=== PATIENT | female | born 1975 | race Caucasian/White ===

== ENCOUNTER 2018-03-29 19:16 | Emergency (ER) | payer OTHER ==
[2018-03-29 19:38] VITALS: BMI 23.7
--- NOTE | 2018-03-29 19:40 | PDOC ---
Rapid Medical Evaluation Chief Complaint: Blood Pressure Problem Time Seen by Provider: 03/29/18 19:34 Medical Evaluation: Vital Signs Temp Pulse Resp BP Pulse Ox 69 16 166/92 100 03/29/18 19:34 03/29/18 19:34 03/29/18 19:34 03/29/18 19:34 03/29/18 19:38 b/p 172/71 at [facility] with mild headache. denies chest pain/. history of hypertension. Pmhx dr. miramontes PE: patient alert ox3. Plan. patient to the ER for further management of care.
[2018-03-29] MEDS ORDERED: metoPROLOL SUCCINATE 25 MG TAB.SR.24H (FP) PO ONE (21:10)
[2018-03-29 22:04] VITALS: BP 150/92; PULSE 61
--- NOTE | 2018-03-29 22:10 | PDOC ---
History of Present Illness - General Chief Complaint: Blood Pressure Problem Stated Complaint: BLOOD PRESSURE Time Seen by Provider: 03/29/18 19:34 - History of Present Illness Initial Comments: 42-year-old female presents for evaluation of headache and associated hypertension. She states she lived in [facility] [place] was given hypertensive medicine but does not recall the name. Since waiting her headache has resolved. 03/29/18 22:05 Past History - Past Medical History Allergies/Adverse Reactions: Allergies Allergy/AdvReac Type Severity Reaction Status Date / Time No Known Allergies Allergy Verified 03/29/18 19:39 Home Medications: Ambulatory Orders Metoprolol Succinate 25 mg PO DAILY #10 tab.er.24h 03/29/18 COPD: No HTN: Yes - Immunization History Immunization Up to Date: Yes - Suicide/Smoking/Psychosocial Hx Smoking History: Never smoked Have you smoked in the past 12 months: No Information on smoking cessation initiated: No Hx Alcohol Use: No Drug/Substance Use Hx: No Substance Use Type: None Review of Systems - Review of Systems Comments:: GENERAL/CONSTITUTIONAL: No fever or chills. No weakness. No weight change. HEAD, EYES, EARS, NOSE AND THROAT: No change in vision. No ear pain or discharge. No sore throat. CARDIOVASCULAR: No chest pain or shortness of breath. RESPIRATORY: No cough, wheezing, or hemoptysis. GASTROINTESTINAL: No nausea, vomiting, diarrhea or constipation. No rectal bleeding. GENITOURINARY: No dysuria, frequency, or change in urination. MUSCULOSKELETAL: No joint or muscle swelling or pain. No neck or back pain. SKIN AND BREASTS: No rash or easy bruising. NEUROLOGIC: + headache, no vertigo, loss of consciousness, or loss of sensation. PSYCHIATRIC: No depression or anxiety. ENDOCRINE: No increased thirst. No abnormal weight change. HEMATOLOGIC/LYMPHATIC: No anemia, easy bleeding, or history of blood clots. ALLERGIC/IMMUNOLOGIC: No hives or skin allergy. No latex allergy. 03/29/18 22:06 *Physical Exam - Vital Signs Last Vital Signs Temp Pulse Resp BP Pulse Ox 61 16 150/92 100 03/29/18 22:03 03/29/18 19:34 03/29/18 22:03 03/29/18 22:03 - Physical Exam Comments: GENERAL: The patient is awake, alert, and fully oriented, in no acute distress. HEAD: Normal with no signs of trauma. EYES: Pupils equal, round and reactive to light, extraocular movements intact, sclera anicteric, conjunctiva clear. Fundi normal ENT: Ears normal, nares patent, oropharynx clear without exudates. Moist mucous membranes. NECK: Normal range of motion, supple without lymphadenopathy, JVD, or masses. LUNGS: Breath sounds equal, clear to auscultation bilaterally. No wheezes, and no crackles. HEART: Regular rate and rhythm, normal S1 and S2 without murmur, rub or gallop. ABDOMEN: Soft, nontender, normoactive bowel sounds. No guarding, no rebound. No masses. EXTREMITIES: Normal range of motion, no edema. No clubbing or cyanosis. No cords, erythema, or tenderness. NEUROLOGICAL: Cranial nerves II through XII grossly intact. Normal speech, normal gait. PSYCH: Normal mood, normal affect. SKIN: Warm, Dry, normal turgor, no rashes or lesions noted. 03/29/18 22:06 ED Treatment Course - ADDITIONAL ORDERS Additional order review: Laboratory Results 03/29/18 20:15 Urine HCG, Qual Negative - Medications Given in the ED: ED Medications Discontinued Medications Generic Name Dose Route Start Last Admin Trade Name Freq PRN Reason Stop Dose Admin Metoprolol Succinate 25 mg 03/29/18 21:10 03/29/18 21:27 Toprol Xl - PO 03/29/18 21:11 25 mg ONCE ONE Administration Medical Decision Making - Medical Decision Making 42-year-old female with a past history significant for hypertension she is gone left untreated. I've given her a beta maria teresa in the emergency room and her blood pressure has trended down. I will prescribe her a by mouth beta maria teresa for home use and follow-up with the primary care physician. She does not have a local primary care physician. She is new to the area. 03/29/18 22:07 *DC/Admit/Observation/Transfer Diagnosis at time of Disposition: Hypertension - Discharge Dispostion Disposition: HOME Condition at time of disposition: Improved Decision to Admit order: No - Referrals Referrals: Afia Small MD [Staff Physician] - Boaz Miller MD [Staff Physician] - Christopher Lechuga MD [Staff Physician] - Nkechi Webster MD [Staff Physician] - Zaira Marin MD [Staff Physician] - - Patient Instructions Printed Discharge Instructions: DI for High Blood Pressure Additional Instructions: Please do not take any other hypertensive medicine you may have at home. I prescribed you one today. It is one tablet once a day. It is very important that you follow up with the primary care physician. If he did not have one I've recommended one for you. Return to the emergency room if you experience headache visual changes or dizziness. Time he should follow-up with the primary care physician in the next day - Post Discharge Activity
== END 2018-03-29 22:17 | disposition home or self-care (01) ==
LOC: JERFT 19:16
DX: I10 Essential (primary) hypertension (principal)
CPT/HCPCS: 84703; 99281-25

== ENCOUNTER 2019-08-31 13:16 | Emergency (ER) | payer OTHER ==
--- NOTE | 2019-08-31 13:31 | PDOC ---
Rapid Medical Evaluation Time Seen by Provider: 08/31/19 13:29 Medical Evaluation: Allergies Allergy/AdvReac Type Severity Reaction Status Date / Time No Known Allergies Allergy Verified 03/29/18 19:39 08/31/19 13:29 I have performed a brief in-person evaluation of this patient. The patient presents with a chief complaint of: 1 week of cough, chest pressure and difficulty breathing. No fever/chills I have ordered the following: UCG, CXR The patient will proceed to the ED for further evaluation. Discharge Disposition - Diagnosis Cough - Referrals - Patient Instructions - Post Discharge Activity
[2019-08-31 13:40] VITALS: BMI 25.8
--- NOTE | 2019-08-31 15:17 | PDOC ---
History of Present Illness - General History Source: Patient Exam Limitations: Clinical Condition - History of Present Illness Initial Comments: 08/31/19 15:46 Patient with no sig PMhx present with complains of 1 month h/o intermittent SOB especially when she lays down flat and mid-sternal cp for a week now. Patient report had cold symptoms a month ago which has resolved but has been having dyspenia when she lays down and on exertion after walking for few blocks.Patient reported she was admitted in the [place] 3 years ago and was in coma for few months after which she started having intermittent shortness of breath and dyspenia. Patient has not followed up since discharge from hospital 3 years ago and reporting she does not have any PCP and has not followed up. Patient reports she does not know who to follow-up with. Denies nausea, vomiting, dizziness, palpitation, numbness or tingling sensation. Denies abdominal pains. Is this a multiple visit Asthma Patient?: No Timing/Duration: other (1 month) Modifying Factors: improves with: rest. worse with: movement Associated Symptoms: reports: chest pain (mid-sternum chest pain), shortness of breath (intermittent). denies: fever/chills, headaches, loss of appetite, nausea/vomiting, syncope Aspirin Received prior to arrival: Yes: no aspirin today <Satnam Sena - Last Filed: 08/31/19 16:25> <Dinesh Duckworth - Last Filed: 08/31/19 16:31> - General Chief Complaint: Cold Symptoms Stated Complaint: COLD SYMPTOMS Time Seen by Provider: 08/31/19 13:29 Past History - Past Medical History COPD: No HTN: Yes - Immunization History Immunization Up to Date: Yes - Psycho Social/Smoking Cessation Hx Smoking History: Never smoked Have you smoked in the past 12 months: No Information on smoking cessation initiated: No Hx Alcohol Use: No Drug/Substance Use Hx: No Substance Use Type: None <Satnam Sena - Last Filed: 08/31/19 16:25> <Dinesh Duckworth - Last Filed: 08/31/19 16:31> - Past Medical History Allergies/Adverse Reactions: Allergies Allergy/AdvReac Type Severity Reaction Status Date / Time No Known Allergies Allergy Verified 08/31/19 13:32 Home Medications: Ambulatory Orders Metoprolol Succinate 25 mg PO DAILY #10 tab.er.24h 03/29/18 Review of Systems - Review of Systems Able to Perform ROS?: Yes Is the patient limited Latvian proficient: No Constitutional: No: Fever, Malaise HEENTM: Yes: Symptoms Reported, See HPI, Nose Congestion. No: Eye Pain, Blurred Vision, Tearing, Recent change in vision, Double Vision, Cataracts, Ear Pain, Ocular Prothesis, Ear Discharge, Nose Pain, Tinnitus, Nose Bleeding, Hearing Loss, Throat Pain, Throat Swelling, Mouth Pain, Dental Problems, Difficulty Swallowing, Mouth Swelling, Other Respiratory: Yes: Symptoms reported, See HPI, Shortness of Breath (intermittent) , SOB with Exertion. No: Cough, Orthopnea, SOB at Rest, Stridor, Wheezing, Productive cough, Hemoptysis, Other Cardiac (ROS): Yes: Symptoms Reported, See HPI, Chest Pain (mid-sternum chest pain x 1 month). No: Edema, Irregular Heart Rate, Lightheadedness, Palpitations , Syncope, Chest Tightness, Other ABD/GI: No: Nausea, Vomiting Integumentary: No: Symptoms Reported All Other Systems: Reviewed and Negative <Satnam Sena - Last Filed: 08/31/19 16:25> *Physical Exam - Vital Signs Last Vital Signs Temp Pulse Resp BP Pulse Ox 98.9 F 66 17 129/84 100 08/31/19 13:31 08/31/19 13:31 08/31/19 13:31 08/31/19 13:31 08/31/19 13:31 - Physical Exam Comments: 08/31/19 15:15 GENERAL: Well developed, well nourished. Awake and alert. No acute distress. HEENT: Normocephalic, atraumatic. PERRLA, EOMI. No conjunctival pallor. Sclera are non-icteric. Moist mucous membranes. Oropharynx is clear. NECK: Supple. Full ROM. CARDIOVASCULAR: mild midsternal tenderness. Regular rate and rhythm. No murmurs, rubs, or gallops. Distal pulses are 2+ and symmetric. PULMONARY: No evidence of respiratory distress. Lungs clear to auscultation bilaterally. No wheezing, rales or rhonchi. ABDOMINAL: Soft. Non-tender. Non-distended. No rebound or guarding. No organomegaly. Normoactive bowel sounds. MUSCULOSKELETAL Normal range of motion at all joints. mild mid-sternal chest pain. SKIN: Warm and dry. Normal capillary refill. No rashes. No cyanosis NEUROLOGICAL: Alert, awake, appropriate. Gait is normal without ataxia. PSYCHIATRIC: Cooperative. Good eye contact. Appropriate mood General Appearance: Yes: Nourished, Appropriately Dressed. No: Apparent Distress <Satnam Sena Kelvin - Last Filed: 08/31/19 16:25> - Vital Signs Last Vital Signs Temp Pulse Resp BP Pulse Ox 98.9 F 66 17 129/84 100 08/31/19 13:31 08/31/19 13:31 08/31/19 13:31 08/31/19 13:31 08/31/19 13:31 <Dinesh Duckworth - Last Filed: 08/31/19 16:31> ED Treatment Course - LABORATORY CBC & Chemistry Diagram: 08/31/19 15:29 08/31/19 15:29 <Satnam Sena - Last Filed: 08/31/19 16:25> - LABORATORY CBC & Chemistry Diagram: 08/31/19 15:29 08/31/19 15:29 - ADDITIONAL ORDERS Additional order review: Laboratory Results 08/31/19 08/31/19 15:29 15:29 Troponin I < 0.02 B-Natriuretic Peptide 30.4 08/31/19 15:29 RBC 4.53 MCV 94.0 MCHC 32.4 RDW 13.5 MPV 10.5 Neutrophils % 62.4 Lymphocytes % 29.1 Monocytes % 6.9 Eosinophils % 0.9 Basophils % 0.7 <Dinesh Duckworth - Last Filed: 08/31/19 16:31> Medical Decision Making - Medical Decision Making 08/31/19 15:50 Patient with no sig PMhx present with complains of 1 month h/o intermittent SOB especially when she lays down flat and mid-sternal cp for a week now. Patient report had cold symptoms a month ago which has resolved but has been having dyspenia when she lays down and on exertion after walking for few blocks.Patient reported she was admitted in the [place] 3 years ago and was in coma for few months after which she started having intermittent shortness of breath and dyspenia. Patient has not followed up since discharge from hospital 3 years ago and reporting she does not have any PCP and has not followed up. Patient reports she does not know who to follow-up with. Denies nausea, vomiting, dizziness, palpitation, numbness or tingling sensation. Denies abdominal pains. Clinical exam unremarkable with normal cardio and lung exam except mild midsternal reproducible tenderness. Symptoms likely costochondritis from URI symptoms versus less likely acute cardiogenic symptoms. CBC, CMP, BNP and cardiac profile lab ordered. EKG ordered. Chest x-ray ordered. Patient be discharged home if normal EKG, imaging and lab results with cardiology follow-up 08/31/19 16:25 CBC unremarkable. cardiac profile neg. rest of labs still pending. Patient signed out to oncoming CRISTINA Hanna for follow-up care <Satnam Sena - Last Filed: 08/31/19 16:25> - Medical Decision Making 08/31/19 16:31 I reviewed the case of the mid-level practitioner and was available for consultation while in the emergency department <Dinesh Duckworth - Last Filed: 08/31/19 16:31> Discharge - Discharge Information Problems reviewed: Yes <Satnam Sena - Last Filed: 08/31/19 16:25> <Dinesh Duckworth - Last Filed: 08/31/19 16:31> - Discharge Information Clinical Impression/Diagnosis: Cough, Dyspnea on exertion Condition: Stable
[2019-08-31 15:58] LABS: BASO % 0.7 % (0-2.0); EOS % 0.9 % (0-4.5); HEMATOCRIT 42.6 % (32.4-45.2); HEMOGLOBIN 13.8 GM/dL (10.7-15.3); LYMPH % 29.1 % (8-40); MCH 30.5 pg (25.7-33.7); MCHC 32.4 g/dl (32.0-36.0); MEAN PLT VOLUME 10.5 fl (7.5-11.1); MONO % 6.9 % (3.8-10.2); NEUT % 62.4 % (42.8-82.8); PLATELET COUNT 251 K/MM3 (134-434); RBC 4.53 M/mm3 (3.60-5.2); RDW 13.5 % (11.6-15.6); WHITE BLOOD COUNT 8.5 K/mm3 (4.0-10.0)
[2019-08-31 16:38] LABS: ALBUMIN 3.7 g/dl (3.4-5.0); BILIRUBIN,TOTAL 0.2 mg/dL (0.2-1); BLOOD UREA NITROGEN 18.1 mg/dL (7-18); CALCIUM 9.3 mg/dL (8.5-10.1); CREATININE 0.8 mg/dL (0.55-1.3); POTASSIUM 4.8 mmol/L (3.5-5.1); TOT PROT 7.2 g/dl (6.4-8.2)
--- NOTE | 2019-08-31 16:41 | PDOC ---
*Physical Exam - Vital Signs Last Vital Signs Temp Pulse Resp BP Pulse Ox 98.9 F 66 17 129/84 100 08/31/19 13:31 08/31/19 13:31 08/31/19 13:31 08/31/19 13:31 08/31/19 13:31 - Physical Exam Comments: 08/31/19 16:40 Sign-out received from outgoing ER provider Nathen. Pt interviewed and examined. Patient denies any recent travel, surgery, use of hormones/OCPs. Patient is PERC negative. Ancillary studies reviewed. Awaiting lab results. Discussed results with patient and recommend that she f/u with pulmonology given persistent dyspnea. Patient verbalized understanding and agrees to plan. ED Treatment Course - LABORATORY CBC & Chemistry Diagram: 08/31/19 15:29 08/31/19 15:29 - ADDITIONAL ORDERS Additional order review: Laboratory Results 08/31/19 08/31/19 08/31/19 15:29 15:29 15:29 Sodium Potassium Chloride Carbon Dioxide Anion Gap BUN Creatinine Est GFR (CKD-EPI)AfAm Est GFR (CKD-EPI)NonAf Random Glucose Calcium Total Bilirubin AST ALT Alkaline Phosphatase Troponin I < 0.02 B-Natriuretic Peptide 30.4 Total Protein Albumin Blood Type O POSITIVE Antibody Screen Negative 08/31/19 15:29 Sodium 135 L Potassium 4.8 Chloride 102 Carbon Dioxide 27 Anion Gap 7 L BUN 18.1 H Creatinine 0.8 Est GFR (CKD-EPI)AfAm 104.65 Est GFR (CKD-EPI)NonAf 90.30 Random Glucose 102 Calcium 9.3 Total Bilirubin 0.2 AST 16 ALT 18 Alkaline Phosphatase 62 Troponin I B-Natriuretic Peptide Total Protein 7.2 Albumin 3.7 Blood Type Antibody Screen 08/31/19 15:29 RBC 4.53 MCV 94.0 MCHC 32.4 RDW 13.5 MPV 10.5 Neutrophils % 62.4 Lymphocytes % 29.1 Monocytes % 6.9 Eosinophils % 0.9 Basophils % 0.7 Discharge - Discharge Information Problems reviewed: Yes Clinical Impression/Diagnosis: Shortness of breath Condition: Stable Disposition: HOME - Admission No - Follow up/Referral Referrals: Jass Diaz MD, MD [Staff Physician] - - Patient Discharge Instructions Patient Printed Discharge Instructions: DI for Shortness of Breath Print Language: ICELANDIC - Post Discharge Activity
[2019-08-31 17:27] VITALS: BP 148/97; PULSE 68; TEMP 98
--- NOTE | 2019-09-01 14:55 | EKG ---
Test Reason : Blood Pressure : / mmHG Vent. Rate : 053 BPM Atrial Rate : 053 BPM P-R Int : 126 ms QRS Dur : 080 ms QT Int : 448 ms P-R-T Axes : 040 041 036 degrees QTc Int : 420 ms SINUS BRADYCARDIA T WAVE ABNORMALITY, CONSIDER ANTERIOR ISCHEMIA ABNORMAL ECG NO PREVIOUS ECGS AVAILABLE Confirmed by JOSEFA CLARK MD ([id number]) on 09/01/2019 2:55:28 PM Referred By: Confirmed By:JOSEFA CLARK MD
== END 2019-08-31 17:27 | disposition home or self-care (01) ==
LOC: JER 13:16 → JERFT 13:16 → JER 17:27
DX: R05 Cough (principal); I10 Essential (primary) hypertension
CPT/HCPCS: 36415; 71046-TC-FY; 80053; 83880; 84484; 85025; 86850; 86900; 86901; 93005; 93010; 99282-25

== ENCOUNTER 2025-05-10 15:16 | Emergency (ER) | payer OTHER ==
[2025-05-10 15:33] VITALS: BMI 31.1
[2025-05-10] MEDS ORDERED: ACETAMINOPHEN INJECTION 100 ML ONE (16:55)
[2025-05-10] MEDS ORDERED: METOCLOPRAMIDE HCL INJECTION 10 MG/2 ML VIAL ONE (16:55)
[2025-05-10 17:02] LABS: ABSOLUTE IMMATURE GRANULOCYTES 0.03 x10^3/uL (0.0-0.031); BASOPHILS # 0.09 x10^3/uL (0.01-0.08); EOSINOPHIL % 3.1 % (0.7-5.8); EOSINOPHILS # 0.30 x10^3/uL (0.04-0.36); MCHC 31.7 g/dl (32.2-35.5); MEAN CELL VOLUME 84.7 fl (79.4-94.8); MEAN PLT VOLUME 12.1 fl (9.4-12.3); MONOCYTE # 0.68 x10^3/uL (0.24-0.86); MONOCYTE % 7.0 % (4.7-12.5); RDW 16.2 % (12.2-17.1)
[2025-05-10] MEDS: SODIUM CHLORIDE 1,000 ML IV STA (17:21)
[2025-05-10] MEDS: ACETAMINOPHEN 1000 MG/100 ML BAG IVPB ONE (17:22)
[2025-05-10] MEDS: METOCLOPRAMIDE HCL INJECTION 10 MG/2 ML VIAL IVPUSH ONE (17:22)
[2025-05-10 17:25] LABS: CO2 28.0 mmol/L (21-32); GLUCOSE,RANDOM 121.0 mg/dL (74-106)
[2025-05-10 17:28] LABS: CREATININE 1.1 mg/dL (0.55-1.3); SGOT/AST 27.0 U/L (15-37); SGPT/ALT 34.0 U/L (13-61); TOT PROT 6.9 g/dl (6.4-8.2)
[2025-05-10 17:30] LABS: ALK PHOS 70.0 U/L (45-117)
[2025-05-10 17:38] LABS: EPI CELLS 14 /uL (0-25.1); HYALINE CASTS 1 /uL (0-3.1); URINE APPEARANCE CLOUDY; URINE BACTERIA 34 /uL (0-1359); URINE BILIRUBIN NEGATIVE (NEGATIVE); URINE COLOR RED; URINE GLUCOSE (UA) NEGATIVE (NEGATIVE); URINE KETONE NEGATIVE (NEGATIVE); URINE LEUK ESTERASE TRACE (NEGATIVE); URINE NITRITE NEGATIVE (NEGATIVE); URINE PROTEIN TRACE (NEGATIVE); URINE RBC 9991 /uL (0-23.9); URINE UROBILINOGEN 0.2 mg/dL (0.2-1.0); URINE WBC 38 /uL (0-25.8)
[2025-05-10] MEDS ORDERED: CEFTRIAXONE 1 GM/50 ML BAG ONE (18:17)
[2025-05-10] MEDS ORDERED: FAMOTIDINE 20 MG/50 ML IVPB 20 MG/50 ML MG IVPB ONE (18:17)
[2025-05-10 18:33] LABS: HCV DIAGNOSTIC IN-HOUSE W/RFLX NON-REACTIVE (NONREACTIVE); HIV INTERPRETATION NEGATIVE (NEGATIVE)
[2025-05-10 19:31] VITALS: BP 110/60; PULSE 74; RESP 18; TEMP 99.1
[2025-05-10] MEDS: FAMOTIDINE 20 MG/50 ML IVPB 20 MG/50 ML MG IVPB ONE (20:16)
[2025-05-10] MEDS: METOPROLOL TARTRATE 5 MG/5 ML VIAL IVPUSH ONE (20:29)
== END 2025-05-10 21:26 | disposition home or self-care (01) ==
LOC: JER 15:16
PROC: 3E033GC Introduction of Other Therapeutic Substance into Peripheral Vein, Percutaneous Approach (ICD-10-PCS; principal; 2025-05-10)
PROC: 3E033NZ Introduction of Analgesics, Hypnotics, Sedatives into Peripheral Vein, Percutaneous Approach (ICD-10-PCS; 2025-05-10)
PROC: 3E03329 Introduction of Other Anti-infective into Peripheral Vein, Percutaneous Approach (ICD-10-PCS; 2025-05-10)
PROC: 3E033GC Introduction of Other Therapeutic Substance into Peripheral Vein, Percutaneous Approach (ICD-10-PCS; 2025-05-10)
PROC: 3E033GC Introduction of Other Therapeutic Substance into Peripheral Vein, Percutaneous Approach (ICD-10-PCS; 2025-05-10)
DX: N39.0 Urinary tract infection, site not specified (principal); R42 Dizziness and giddiness; R07.89 Other chest pain; R06.02 Shortness of breath; R35.0 Frequency of micturition; R51.9 Headache, unspecified
CPT/HCPCS: 36415; 71045-TC-FY; 80053; 81003; 82550; 82962; 84484; 85025; 86803; 87389; 93005; 93010; 99285-25